=== PATIENT | male | born 1945 | race Caucasian/White ===

== ENCOUNTER 2017-02-11 13:08 | Emergency (ER) | payer OTHER ==
--- NOTE | 2017-02-11 13:28 | EDPHY ---
H & P Stated Complaint: PT STATES HE IS CONSTIPATED/?BOWEL OBSTRUCTION/ABD PAIN Time Seen by Provider: 02/11/17 13:15 HPI/ROS: CHIEF COMPLAINT: possible constipation HISTORY OF PRESENT ILLNESS: 71-year-old male generally healthy with no history of abdominal surgeries arrives via private vehicle complaining of constipation. Tempted to have a bowel movement after breakfast this morning, unsuccessfully. He is passing gas as normal. He was able to eat breakfast without abdominal pain or nausea or vomiting. He subsequently took over-the- counter remedies with no further bowel movement carried contact his PCP who recommended come to the emergency department for further evaluation. Also complains of possible urinary retention although does note some urine is passing freely. No known history of prostatic hypertrophy. No back pain, no radiculopathy in lower extremities, no saddle anesthesia. PCP: Jamel REVIEW OF SYSTEMS: A ten point review of systems was performed and is negative with the exception of the items mentioned in the HPI PAST MEDICAL & SURGICAL HISTORY: No history of abdominal surgeries. History of cardiac stenting. SOCIAL HISTORY: nonsmoker. PHYSICAL EXAM (Prior to examination, patient consented to physical exam, hands were washed and my usual and customary physical exam procedures followed) 1) GENERAL: Well-developed, well-nourished, alert and oriented. Appears to be in no acute distress. Smiling, making jokes appears well 2) HEAD: Normocephalic, atraumatic 3) HEENT: Pupils equal, round, reactive to light bilaterally. Sclera anicteric. 4) NECK: Full range of motion, no meningeal signs. 5) LUNGS: Clear auscultation bilaterally, no wheezes, no rhonchi, no retractions. 6) HEART: Regular rate and rhythm, no murmur, no heave, no gallop. 7) ABDOMEN: No guarding, no rebound, no focal tenderness, negative McBurney's, negative Jacinto's, negative Rovsing's, negative peritoneal sign, unable to elicit any abdominal pain on exam 8) MUSCULOSKELETAL: Moving all extremities, no focal areas of tenderness, no obvious trauma. No peripheral edema or discoloration. 9) BACK: No CVA tenderness, no midline vertebral tenderness, no fluctuance, no step-off, no obvious trauma, no visual or palpable abnormality. 10) SKIN: No rash, no petechiae. 11) RECTAL: Positive firm brown stool in the rectal vault. Stool manually disimpacted by myself, approximately baseball sized amount of stool removed from rectal vault DIFFERENTIAL DIAGNOSIS: [ no particular include but limited to bowel obstruction, constipation, BPH, cauda equina - Personal History Current Tetanus/Diphtheria Vaccine: Yes - Medical/Surgical History Hx Asthma: No Hx Chronic Respiratory Disease: No Hx Diabetes: No Hx Cardiac Disease: Yes Hx Renal Disease: No Hx Cirrhosis: No Hx Alcoholism: No Hx HIV/AIDS: No Hx Splenectomy or Spleen Trauma: No Other PMH: HTN, HYPERLIPIDEMIA, Stent x 1 (2013) - Social History Smoking Status: Never smoked Constitutional: Initial Vital Signs Temperature (C) 36.8 C 02/11/17 13:12 Heart Rate 60 02/11/17 13:12 Respiratory Rate 18 02/11/17 13:12 Blood Pressure 155/86 H 02/11/17 13:12 O2 Sat (%) 97 02/11/17 13:12 O2 Delivery Mode Room Air Allergies/Adverse Reactions: No Known Allergies Allergy (Verified 12/29/13 12:31) Home Medications: Medication Instructions Recorded Atorvastatin Calcium [Lipitor 20 20 mg PO HS 07/04/13 mg (*)] Lisinopril [Zestril 10 mg (*)] 10 mg PO DAILY 07/04/13 Herbals/Supplements -Info Only 1 tab PO HS 07/05/13 [place]-3 Fatty Acids [Fish Oil 1000 1,000 mg PO DAILY 07/05/13 mg (*)] Multivitamins [Multivitamin (*)] 1 each PO DAILY 08/28/13 Metoprolol Succinate 02/11/17 Medical Decision Making ED Course/Re-evaluation: 1:28 p.m.: Care of patient under supervision of primary supervising physician Dr Horn with whom I discussed care. . 3:10 p.m.: The patient had initial manual disimpaction by myself with approximately baseball size amount of stool, was then later given enema in the emergency department and had a very large bowel movement at which point he then was able to urinate voluntarily. He was re-evaluated by myself, he was happy , smiling, states that he felt much better and he would like to be discharged home. - Data Points Medications Given: Discontinued Medications Docusate Sodium (Colace) 100 mg PO EDNOW ONE Stop: 02/11/17 13:31 Last Admin: 02/11/17 13:42 Dose: Not Given Departure - Departure Disposition: Home, Routine, Self-Care Clinical Impression: Constipation Qualifiers: Constipation type: unspecified constipation type Qualified Code(s): K59.00 - Constipation, unspecified Condition: Good Instructions: Constipation (ED), High Fiber Diet (ED) Additional Instructions: Return to the emergency department if you developed abdominal pain, nausea, vomiting, back pain, inability to urinate or any other symptoms that concern you. Referrals: Dano Mccullough MD [Primary Care Provider] - 02/14/17
[2017-02-11] MEDS ORDERED: DOCUSATE SODIUM 100 MG CAP PO ONE ×2 (13:30)
[2017-02-11 16:11] VITALS: BP 139/80; PULSE 82; RESP 17; TEMP 97.5; O2SAT 94
== END 2017-02-11 15:19 | disposition home or self-care (01) ==
DX: K59.00 Constipation, unspecified (principal); I10 Essential (primary) hypertension